=== PATIENT | female | born 1990 | race Caucasian/White ===

== ENCOUNTER → 2016-11-13 | Outpatient (CLI) | payer MEDICAID | LOC: FIMAGING 14:38 | PROVIDERS: ATTEND Family Medicine | DX: S69.92XA Unspecified injury of left wrist, hand and finger(s), initial encounter (principal) ==

== ENCOUNTER 2017-08-11 13:00 | Emergency (ER) | payer MEDICAID ==
[2017-08-11 13:31] VITALS: TEMP 97.7
[2017-08-11] MEDS ORDERED: CEPHALEXIN 500 MG CAP PO ONE (13:59)
[2017-08-11] MEDS ORDERED: PHENAZOPYRIDINE HCL 200 MG TAB PO ONE (13:59)
--- NOTE | 2017-08-11 14:01 | EDPHY ---
H & P Stated Complaint: Recurrence of UTI; frequency, burning, swollen glands Time Seen by Provider: 08/11/17 13:50 HPI/ROS: CHIEF COMPLAINT: Dysuria HISTORY OF PRESENT ILLNESS: The patient is a 26-year-old female who has a history of urinary tract infections and pyelonephritis. Patient states that she was hospitalized last month. The patient states that she was discharged with antibiotics and her symptoms have been better for the last month however she is beginning to notice some urinary frequency and dysuria again today. She also noticed a swollen lymph node in her inguinal region which is similar to her previous infection. No fever. No back pain. No urinary bleeding, no vaginal bleeding. REVIEW OF SYSTEMS: Constitutional: denies: chills, fever, recent illness, recent injury EENTM: denies: blurred vision, double vision, nose congestion Respiratory: denies: cough, shortness of breath Cardiac: denies: chest pain, irregular heart rate, lightheadedness, palpitations Gastrointestinal/Abdominal: denies: abdominal pain, diarrhea, nausea, vomiting, blood streaked stools Genitourinary: See HPI Musculoskeletal: denies: joint pain, muscle pain Skin: denies: lesions, rash, jaundice, bruising Neurological: denies: headache, numbness, paresthesia, tingling, dizziness, weakness Hematologic/Lymphatic: denies: blood clots, easy bleeding, easy bruising Immunologic/allergic: denies: HIV/AIDS, transplant EXAM: GENERAL: Well-appearing, well-nourished and in no acute distress. HEAD: Atraumatic, normocephalic. EYES: Pupils equal round and reactive to light, extraocular movements intact, sclera anicteric, conjunctiva are normal. ENT: TMs normal, nares patent, oropharynx clear without exudates. Moist mucous membranes. NECK: Normal range of motion, supple without lymphadenopathy or JVD. LUNGS: Breath sounds clear to auscultation bilaterally and equal. No wheezes rales or rhonchi. HEART: Regular rate and rhythm without murmurs, rubs or gallops. ABDOMEN: Soft, nontender, normoactive bowel sounds. No guarding, no rebound. No masses appreciated. exam: Normal labia, no nabothian cyst, no discharge BACK: No CVA tenderness, no spinal tenderness, step-offs or deformities EXTREMITIES: Normal range of motion, no pitting or edema. No clubbing or cyanosis. NEUROLOGICAL: Cranial nerves II through XII grossly intact. Normal speech, normal gait. 5/5 strength, normal movement in all extremities, normal sensation PSYCH: Normal mood, normal affect. SKIN: Warm, dry, normal turgor, no visible rashes or lesions. Source: Patient Exam Limitations: No limitations - Personal History LMP (Females 10-55): Irregular Current Tetanus Diphtheria and Acellular Pertussis (TDAP): Yes - Medical/Surgical History Hx Asthma: No Hx Chronic Respiratory Disease: No Hx Diabetes: No Hx Cardiac Disease: No Hx Renal Disease: No Hx Cirrhosis: No Hx Alcoholism: No Hx HIV/AIDS: No Hx Splenectomy or Spleen Trauma: No Other PMH: Pyelonephritis. UTIs. eating disorder - Family History Significant Family History: No pertinent family hx - Social History Smoking Status: Current every day smoker Alcohol Use: Sober Drug Use: None Constitutional: Initial Vital Signs Temperature (C) 36.5 C 08/11/17 13:28 Heart Rate 86 08/11/17 13:28 Respiratory Rate 18 08/11/17 13:28 Blood Pressure 123/70 H 08/11/17 13:28 O2 Sat (%) 95 08/11/17 13:28 O2 Delivery Mode Room Air Allergies/Adverse Reactions: clams Allergy (Severe, Uncoded 08/11/17 13:27) Anaphylaxis Home Medications: Medication Instructions Recorded Cephalexin [Keflex] 500 mg PO TID #21 cap 08/11/17 Phenazopyridine HCl [Pyridium] 200 mg PO TID #6 tab 08/11/17 Medical Decision Making ED Course/Re-evaluation: The patient's urine is not overtly positive but her symptoms are consistent. I will start her on Keflex and Pyridium and have her follow up. Cultures have been sent. She is happy with this plan and declines further evaluation or treatment at this time. Differential Diagnosis: Partial list of the Differential diagnosis considered include but were not limited to; urinary tract infection, pyelonephritis, kidney stone, nabothian gland cyst and although unlikely based on the history and physical exam, I also considered , ST, appendicitis. I discussed these differential diagnoses and the plan with the patient as well as the usual and expected course. The patient understands that the diagnosis is provisional and that in medicine we are not always correct and that further workup is often warranted. Usual and customary warnings were given. All of the patient's questions were answered. The patient was instructed to return to the emergency department should the symptoms at all worsen or return, otherwise to followup with the physician as we discussed. - Data Points Laboratory Results: 08/11/17 08/11/17 13:05 13:05 Urine Color COLORLESS Urine Appearance CLEAR Urine pH 6.0 (5.0-7.5) Ur Specific [place] 1.001 L (1.002-1.030) Urine Protein NEGATIVE (NEGATIVE) Urine Ketones NEGATIVE (NEGATIVE) Urine Blood NEGATIVE (NEGATIVE) Urine Nitrate NEGATIVE (NEGATIVE) Urine Bilirubin NEGATIVE (NEGATIVE) Urine Urobilinogen NEGATIVE EU EU (0.2-1.0) Ur Leukocyte Esterase NEGATIVE (NEGATIVE) Urine RBC NONE SEEN /hpf /hpf (0-3) Urine WBC NONE SEEN /hpf /hpf (0-3) Ur Epithelial Cells TRACE /lpf /lpf (NONE-1+) Urine Glucose NEGATIVE (NEGATIVE) Medications Given: Discontinued Medications Cephalexin HCl (Keflex) 500 mg PO EDNOW ONE PRN Reason: Protocol Stop: 08/11/17 14:00 Last Admin: 08/11/17 14:05 Dose: 500 mg Phenazopyridine HCl (Pyridium) 200 mg PO EDNOW ONE Stop: 08/11/17 14:00 Last Admin: 08/11/17 14:05 Dose: 200 mg Departure - Departure Disposition: Home, Routine, Self-Care Clinical Impression: Urinary tract infection Qualifiers: Urinary tract infection type: acute cystitis Hematuria presence: with hematuria Qualified Code(s): N30.01 - Acute cystitis with hematuria Condition: Fair Instructions: Urinary Tract Infection in Women (ED) Referrals: NONE *PRIMARY CARE P,. [Primary Care Provider] - As per Instructions Dwayne Nevarez DO [Medical Doctor] - 2-3 days, call for appt. Prescriptions: Cephalexin [Keflex] 500 mg PO TID #21 cap Phenazopyridine HCl [Pyridium] 200 mg PO TID #6 tab
[2017-08-11 14:34] VITALS: BP 115/58; PULSE 76; RESP 16; O2SAT 98
== END 2017-08-11 14:36 | disposition home or self-care (01) ==
DX: N30.01 Acute cystitis with hematuria (principal); F17.200 Nicotine dependence, unspecified, uncomplicated